=== PATIENT | female | born 1985 | race Caucasian/White ===

== ENCOUNTER → 2016-05-12 | Outpatient (CLI) | payer OTHER ==
[~2016-05-12] MED LIST: LORT5TAB PO
[2016-05-14 17:23] LABS: CALCULATED AGE AT EDD 29 years (()); GA USED IN RISK ESTIMATE Dates estimate (()); MATERNAL RACE BLACK non-Black (()); MATERNAL WEIGHT (LBS) 212 lbs (()); RECOMMENDED FOLLOW UP None. (()); TRISOMY 18 SCRN RISK ESTIMATE < 1/100 (())
== END ==
LOC: PLAB 12:35
PROVIDERS: ATTEND Obstetrics & Gynecology
DX: O26.892 Other specified pregnancy related conditions, second trimester (principal); Z13.79 Encounter for other screening for genetic and chromosomal anomalies; Z3A.15 15 weeks gestation of pregnancy
CPT/HCPCS: 81511

== ENCOUNTER → 2016-07-15 | Outpatient (CLI) | payer OTHER ==
[2016-07-15 13:07] LABS: BACTERIA, URINE OCC /hpf; BLOOD, URINE SMALL (NEG); GLUCOSE,URINE NEG (NEG); KETONE, URINE NEG (NEG); MUCUS URINE FEW /lpf (OCC); NITRITE,URINE NEG (NEG); PH, URINE 7.5 (5.0-8.5); SQUAMOUS EPITHELIAL CELL URINE <1 /hpf (0-5); URINE COLOR YELLOW (YELLW/STRAW)
[2016-07-15 13:12] LABS: AMPHETAMINE, URINE NEG (NEG); BARBITURATES, URINE NEG (NEG); COCAINE, URINE NEG (NEG)
[2016-07-15 13:35] LABS: HEMATOCRIT 35.8 % (35.0-46.0); REVIEW FLAG FINAL
== END ==
LOC: CLAB 12:00
PROVIDERS: ATTEND Obstetrics & Gynecology
DX: Z34.82 Encounter for supervision of other normal pregnancy, second trimester (principal); Z3A.27 27 weeks gestation of pregnancy
CPT/HCPCS: 36415; 80307; 81001; 82951; 85014; 85018; 86703; 87086; 87340

== ENCOUNTER → 2016-08-06 | Outpatient (CLI) | payer OTHER ==
[2016-08-06 13:37] LABS: BACTERIA, URINE MOD /hpf; BLOOD, URINE TRACE (NEG); GLUCOSE,URINE NEG (NEG); KETONE, URINE NEG (NEG); MUCUS URINE FEW /lpf (OCC); NITRITE,URINE NEG (NEG); PH, URINE 6.5 (5.0-8.5); SQUAMOUS EPITHELIAL CELL URINE <1 /hpf (0-5); URINE COLOR LIGHT-YELLOW (YELLW/STRAW)
== END ==
LOC: PLAB 11:30
PROVIDERS: ATTEND Obstetrics & Gynecology
DX: O23.43 Unspecified infection of urinary tract in pregnancy, third trimester (principal); Z3A.29 29 weeks gestation of pregnancy
CPT/HCPCS: 81001; 87086

== ENCOUNTER → 2016-08-19 | Outpatient (CLI) | payer OTHER ==
[2016-08-19 15:33] LABS: BACTERIA, URINE OCC /hpf; BLOOD, URINE TRACE (NEG); GLUCOSE,URINE NEG (NEG); KETONE, URINE NEG (NEG); NITRITE,URINE NEG (NEG); SQUAMOUS EPITHELIAL CELL URINE 5 /hpf (0-5); URINE COLOR YELLOW (YELLW/STRAW)
== END ==
LOC: PLAB 12:40
PROVIDERS: ATTEND Obstetrics & Gynecology
DX: Z34.93 Encounter for supervision of normal pregnancy, unspecified, third trimester (principal); R82.90 Unspecified abnormal findings in urine; Z3A.31 31 weeks gestation of pregnancy
CPT/HCPCS: 81001; 87086

== ENCOUNTER 2016-10-12 06:24 | Inpatient (IN) | payer OTHER ==
[2016-10-12] VITALS (185 sets, daily range): BP systolic 68–133; BP diastolic 22–83; PULSE 70–143; RESP 6–20; TEMP 98.1–99.7
[2016-10-12] MEDS ORDERED: LACTATED RINGER'S 1000 ML INJ 1,000 ML IV PRN (07:36)
--- NOTE | 2016-10-12 07:37 | PD ---
HPI Chief Complaint Contractions and leaking of fluid since Date Seen: Oct 12, 2016 Time Seen: 07:31 Travel History International Travel<30 Days: No Contact w/Intl Traveler<30Days: No Known Affected Area: No History of Present Illness HPI 31-year-old who is at 40 weeks and 1 day comes in today complaining of contractions with leaking of fluid since . Patient states baby has been moving well and denies vaginal bleeding. Denies any antepartum complications. Para: 0 : 1 History Past Medical History Medical History: Denies Significant Hx Past Surgical History Surgical History: No Previous Surgery Family History Family History: Negative Social History Alcohol Use: No Tobacco Use: No Substance Abuse: No Allergies-Medications (Allergen,Severity, Reaction): Coded Allergies: No Known Allergies (Unverified , 01/25/12) Home Meds Active Scripts Hydrocodone-Acetaminophen (Lortab 5/500)5 Mg/500 Mg Tab1 Tab PO Q6HPRN #20 Prov:Wilfredo CHURCHILL M.D. 04/05/11 Review of Systems Except as stated in HPI: all other systems reviewed are Neg Physical Exam Narrative GENERAL: Well-nourished, well-developed patient. SKIN: Warm and dry. HEAD: Normocephalic and atraumatic. EYES: No scleral icterus. No injection or drainage. ENT: No nasal drainage noted. Mucous membranes pink. Airway patent. NECK: Supple, trachea midline. No JVD. CARDIOVASCULAR: Regular rate and rhythm without murmurs, gallops, or rubs. RESPIRATORY: Breath sounds equal bilaterally. No accessory muscle use. ABDOMEN/GI: Abdomen soft, non-tender, bowel sounds present, no rebound, no guarding Gravid to [-] weeks size Fundal Height: [-40] GENITOURINARY: External Genitalia: intact and normal in appearance BUS glands: [Normal] Cervix: [-Posterior] Dilatation: [-1] Effacement: [75] Station: [-3-] Presentation: [Vertex-] Membranes: [ruptured] amnisure is positive Uterine Contractions: [-Irregular every 10-15 minutes] FHT's: Category: [-1] Baseline: [-150] Reactive: [Moderate-] Variability: [Moderate-] Decels: [-Absent] EXTREMITIES: No cyanosis or edema. BACK: Nontender without obvious deformity. No CVA tenderness. NEUROLOGICAL: Awake and alert. Motor and sensory grossly within normal limits. Five out of 5 muscle strength in all muscle groups. Normal speech. Data Data Vital Signs Reviewed: Yes Orders Ob (2e) Additional Admit Info (10/12/16 07:23) [facility] Medical Record Reviewed: Yes Plan 31-year-old who is at 40 weeks and 1 day with a positive amnisure indicating rupture membranes Group B strep negative Patient is not in labor at this time and understands that she may need Pitocin augmentation Diagnosis Diagnosis: Primary Impression: 40 weeks gestation of Additional Impressions: Rupture of membranes with clear amniotic fluid Premature rupture of membranes Noni Pearce MD Oct 12, 2016 07:37
[2016-10-12] MEDS ORDERED: SODIUM CHLORID 0.9% 500 ML INJ 500 ML IV PRN (07:45)
[2016-10-12] MEDS ORDERED: LIDOCAINE HCL 1% 50 ML VIAL INFIL PRN (07:45)
[2016-10-12] MEDS ORDERED: OXYTOCIN 30 UNITS-500ML PREMIX 500 ML IV ONE (07:45)
[2016-10-12] MEDS ORDERED: OXYTOCIN 30 UNITS-500ML PREMIX 500 ML IV SCH (07:45)
[2016-10-12] MEDS ORDERED: MINERAL OIL 10 ML VIAL TOPICAL PRN (07:45)
[2016-10-12] MEDS ORDERED: CITRIC ACID-SODIUM CITRATE LIQ 30 ML UDC PO SCH (07:45)
[2016-10-12] MEDS ORDERED: LIDOCAINE HCL 1% 50 ML VIAL I-DERMAL PRN (07:45)
[2016-10-12] MEDS ORDERED: ONDANSETRON HCL 4 MG/2 ML VIAL IV PRN (07:45)
[2016-10-12 07:49] LABS: AUTOMATED NEUTROPHIL # 15.2 TH/MM3 (1.8-7.7); BASOPHIL % 0.2 % (0.0-2.0); EOSINOPHIL % 0.1 % (0.0-4.0); HEMATOCRIT 40.1 % (35.0-46.0); HEMO FLAGS DIFF FINAL; LYMPH % 13.1 % (9.0-44.0); LYMPHOCYTE # 2.4 TH/MM3 (1.0-4.8); MEAN CELL VOLUME 86.5 FL (80.0-100.0); MEAN CORPUSCULAR HEMOGLOBIN 29.3 PG (27.0-34.0); MEAN CORPUSCULAR HGB CONC 33.8 % (32.0-36.0); MONO % 3.5 % (0.0-8.0); NEUT % 83.1 % (16.0-70.0); PLATELET COUNT 253 TH/MM3 (150-450); RED BLOOD COUNT 4.64 MIL/MM3 (4.00-5.30); RED CELL DISTRIBUTION WIDTH 16.1 % (11.6-17.2); WHITE BLOOD COUNT 18.3 TH/MM3 (4.0-11.0)
[2016-10-12] MEDS ORDERED: SODIUM CHLOR 0.9% 1000 ML INJ 1,000 ML IV PRN (07:56)
[2016-10-12 08:01] LABS: BLOOD, URINE MOD (NEG); COMMENT (UR) CULT NOT INDICATED; CULTURE IF INDICATED CULT NOT INDICATED; GLUCOSE,URINE NEG (NEG); KETONE, URINE NEG (NEG); MUCUS URINE FEW /lpf (OCC); NITRITE,URINE NEG (NEG); SQUAMOUS EPITHELIAL CELL URINE <1 /hpf (0-5); URINE COLOR YELLOW (YELLW/STRAW)
[2016-10-12] MEDS: LACTATED RINGER'S 1000 ML INJ 1,000 ML IV SCH ×3 (09:16→20:32)
[2016-10-12] MEDS ORDERED: fentaNYL 2MCG-BUPIV 0.125% INJ 100 ML ONE (12:20)
[2016-10-12] MEDS ORDERED: NO SYSTEM NARCOTICS PRN (16:30)
[2016-10-12] MEDS ORDERED: ePHEDrine/NS 25 MG/5 ML SYR IV PRN (16:30)
[2016-10-12] MEDS ORDERED: DO NOT ADMINISTER ANTICOAGULANTS PRN (17:00)
--- NOTE | 2016-10-12 17:36 | PD.LABORPN ---
Subjective Subjective comfortable since epidural starting to feel pressure pitocin was at 20 and stopped one hour to resume at 2 and increae 9/-1/90% strip category one Need descent will have sit straight up. Objective Vital Signs Vital Signs Date Time Temp Pulse Resp B/P Pulse Ox O2 Delivery O2 Flow Rate FiO2 10/12/16 17:30 99 10/12/16 17:25 100 10/12/16 17:20 92 10/12/16 17:15 91 98/61 10/12/16 17:10 93 10/12/16 17:05 95 10/12/16 17:04 97 95/64 10/12/16 17:03 109 68/47 10/12/16 17:02 143 98/22 10/12/16 17:00 88 10/12/16 16:55 95 10/12/16 16:50 103 10/12/16 16:46 106 123/80 10/12/16 16:45 111 10/12/16 16:40 103 10/12/16 16:35 106 10/12/16 16:31 93 114/77 10/12/16 16:30 99.0 10/12/16 16:30 97 10/12/16 16:30 98.9 10/12/16 16:25 105 10/12/16 16:20 101 10/12/16 16:16 99 110/70 10/12/16 16:15 16 10/12/16 16:15 92 10/12/16 16:10 84 10/12/16 16:05 93 10/12/16 16:02 18 10/12/16 16:01 93 111/64 10/12/16 16:00 91 10/12/16 15:55 99 10/12/16 15:50 89 10/12/16 15:46 84 122/73 10/12/16 15:45 87 10/12/16 15:40 86 10/12/16 15:35 90 10/12/16 15:32 96 115/61 10/12/16 15:30 92 10/12/16 15:30 92 10/12/16 15:25 98 10/12/16 15:25 97 10/12/16 15:20 81 10/12/16 15:16 99 115/83 10/12/16 15:15 99 10/12/16 15:15 98.7 18 10/12/16 15:10 92 10/12/16 15:05 106 10/12/16 15:02 105 103/72 10/12/16 15:00 91 10/12/16 14:55 90 10/12/16 14:55 85 10/12/16 14:50 89 10/12/16 14:50 89 10/12/16 14:46 103 108/73 10/12/16 14:45 104 10/12/16 14:40 98 10/12/16 14:35 94 10/12/16 14:31 92 115/64 10/12/16 14:30 81 10/12/16 14:25 104 10/12/16 14:20 94 10/12/16 14:16 101 116/71 10/12/16 14:15 82 10/12/16 14:10 86 10/12/16 14:05 85 10/12/16 14:01 96 107/67 10/12/16 14:00 85 10/12/16 13:58 16 10/12/16 13:58 6 10/12/16 13:55 79 10/12/16 13:50 79 10/12/16 13:46 76 116/62 10/12/16 13:45 81 10/12/16 13:40 98 10/12/16 13:35 81 10/12/16 13:31 104 108/56 10/12/16 13:30 81 10/12/16 13:25 77 10/12/16 13:20 88 10/12/16 13:16 79 98/61 10/12/16 13:15 86 10/12/16 13:15 87 10/12/16 13:10 95 10/12/16 13:10 95 10/12/16 13:09 98.3 18 10/12/16 13:06 85 109/58 10/12/16 13:05 78 10/12/16 13:02 100 105/68 10/12/16 13:01 95 88/58 10/12/16 13:00 85 10/12/16 12:56 87 114/65 10/12/16 12:55 89 10/12/16 12:51 85 115/60 10/12/16 12:50 90 10/12/16 12:46 85 107/66 10/12/16 12:45 95 10/12/16 12:45 18 10/12/16 12:43 90 110/62 10/12/16 12:41 91 115/61 10/12/16 12:40 92 10/12/16 12:39 90 118/64 10/12/16 12:37 92 119/63 10/12/16 12:35 89 113/67 10/12/16 12:35 88 10/12/16 12:33 99 121/76 10/12/16 12:31 76 132/83 10/12/16 12:30 83 10/12/16 12:25 80 10/12/16 12:20 74 10/12/16 12:15 73 10/12/16 12:10 78 10/12/16 12:05 79 10/12/16 12:00 72 10/12/16 11:55 78 10/12/16 11:50 81 10/12/16 11:45 76 10/12/16 11:40 84 10/12/16 11:40 98.1 10/12/16 11:35 116 10/12/16 11:30 73 10/12/16 11:25 78 10/12/16 11:20 111 10/12/16 11:15 20 133/71 10/12/16 11:15 97 10/12/16 11:10 108 10/12/16 11:05 76 10/12/16 11:00 20 10/12/16 10:30 98.7 10/12/16 10:20 83 10/12/16 10:15 73 10/12/16 10:10 118 10/12/16 10:05 115 10/12/16 10:00 78 10/12/16 09:55 112 10/12/16 09:50 84 10/12/16 09:45 113 10/12/16 09:40 88 Objective Pelvic Exam: Cervix: [-] Dilatation: [-] Effacement: [-] Station: [-] Presentation: [-] Membranes: [intact or ruptured] Uterine Contractions: [-] FHT's: Category: [-] Baseline: [-] Reactive: [-] Variability: [-] Decels: [-] Elvi Segal MD Oct 12, 2016 17:36
[2016-10-12] MEDS ORDERED: ceFAZolin 2 GM PREMIX 50 ML IV STA (19:12)
[2016-10-12] MEDS: fentaNYL 2MCG-BUPIV 0.125% 100 ML EPIDURAL SCH ×2 (19:14→20:10)
[2016-10-12] MEDS ORDERED: ACETAMINOPHEN 1000 MG/100 ML VIAL IV PRN (20:00)
[2016-10-13] VITALS (16 sets, daily range): BP systolic 109–142; BP diastolic 47–87; PULSE 66–100; RESP 16–18; TEMP 97.9–98.9; O2SAT 96–99
[2016-10-13] MEDS: LACTATED RINGER'S 1000 ML INJ 1,000 ML IV SCH (00:35)
[2016-10-13] MEDS ORDERED: LACTATED RINGER'S 1000 ML IV ONE (03:00)
[2016-10-13] MEDS ORDERED: ceFAZolin 2 GM PREMIX 50 ML IV SCH (03:00)
[2016-10-13] MEDS ORDERED: LACTATED RINGER'S 1000 ML IV SCH (03:00)
[2016-10-13] MEDS ORDERED: CITRIC ACID-SODIUM CITRATE LIQ 30 ML UDC PO SCH (03:00)
[2016-10-13] MEDS ORDERED: OXYTOCIN 10 UNIT/ML AMP ONE (03:04)
[2016-10-13] MEDS ORDERED: ceFAZolin INJ 1,000 MG VIAL ONE (03:04)
[2016-10-13] MEDS ORDERED: MORPHINE SULFATE PF 5 MG/10 ML VIAL ONE (03:21)
[2016-10-13] MEDS ORDERED: DICLOFENAC SODIUM 37.5 MG/ML VIAL IV PUSH ONE (03:21)
[2016-10-13] MEDS ORDERED: ONDANSETRON HCL 4 MG/2 ML VIAL ONE (03:21)
[2016-10-13] MEDS ORDERED: EPIDURAL-DO NOT ADMINISTER ANTICOAGULANTS PRN (03:30)
[2016-10-13] MEDS ORDERED: EPIDURAL-NALOXONE HCL 0.4 MG/ML AMP IV PRN (03:30)
[2016-10-13] MEDS ORDERED: EPIDURAL-DIPHENHYDRAMINE HCL 50 MG CAP PO PRN (03:30)
[2016-10-13] MEDS ORDERED: EPIDURAL-DIPHENHYDRAMINE HCL 50 MG/ML VIAL IV PUSH PRN (03:30)
[2016-10-13] MEDS ORDERED: EPIDURAL-NO SYSTEMIC NARCOTICS PRN (03:30)
--- NOTE | 2016-10-13 03:50 | PD.OB.DELI ---
Procedure Note Section Procedure Pre Op Diagnosis term SROM with labor and failure of descent Post Op Diagnosis: Post Op Diagnosis same , delivered Performed by Elvi Segal Procedure: Primary Low Transverse Sec Indication for delivery: malposition Informed consent obtained: For anesthesia, For procedure Confirmed correct: Patient, Procedure, Site, Time-out taken Anesthesia: Epidural Medication prior to procedure: As documented in eMAR Monitoring during procedure: Blood pressure monitoring, court monitor Urinary catheter: Inserted using sterile technique, To dependent drainage Sterile preparation: Duraprep, In usual fashion, With 2% chlorexidine ( Hibiclens) Position: Supine with wedge to right side Operative Features Skin Incision: Pfannenstiel Uterine Incision: Low transverse w/knife / blunt ext Membranes Ruptured: Previously Presentation: Occiput posterior Delivery of : Assisted, Uneventful Infant: Male One Minute : 8 Five Minute : 9 Weight: 7 10 Status of : Viable, Cord blood Placenta delivered: Intact Medications: Antibiotics, Oxytocin Estimated blood loss: average Procedure tolerated: Fair Maternal Condition: Stable Condition: Stable (dictated) Elvi Segal MD Oct 13, 2016 03:50
[2016-10-13] MEDS ORDERED: oxyCODONE/ACETAMINOPHEN 5 MG/325 MG TAB PO PRN ×2 (04:00)
[2016-10-13] MEDS ORDERED: SIMETHICONE 80 MG CHEWABLE TAB PO PRN (04:00)
[2016-10-13] MEDS ORDERED: OXYTOCIN 30 UNITS-500ML PREMIX 500 ML IV ONE (04:00)
[2016-10-13] MEDS ORDERED: SODIUM CHLORIDE 0.9% FLUSH 10 ML FLUSH IV FLUSH PRN (04:00)
[2016-10-13] MEDS ORDERED: ZOLPIDEM TARTRATE 5 MG TAB PO PRN (04:00)
[2016-10-13] MEDS ORDERED: DOCUSATE SODIUM 50 MG/SENNA 8.6 MG TAB PO PRN (04:00)
[2016-10-13] MEDS ORDERED: ONDANSETRON HCL 4 MG/2 ML VIAL IV PUSH PRN (04:00)
[2016-10-13] MEDS ORDERED: ACETAMINOPHEN 1000 MG/100 ML VIAL IV ONE ×2 (04:00→04:34)
[2016-10-13] MEDS ORDERED: LIDOCAINE 2%/EPINEPHrine PF 1:200,000 20ML SDV NERV BLOCK ONE (04:15)
[2016-10-13] MEDS ORDERED: SODIUM BICARBONATE 8.4% SOLN 50 MEQ/50 ML VIAL IV ONE (04:15)
--- NOTE | 2016-10-13 08:40 | MP ---
cc: DEIRDREELVI DATE OF SURGERY 10/13/2016 DATE OF 1985 POSTOPERATIVE DIAGNOSIS Term with spontaneous rupture of membranes, augmentation and failure of descent. POSTOPERATIVE DIAGNOSIS Term with spontaneous rupture of membranes, augmentation and failure of descent. PROCEDURE Primary low transverse segment section ANESTHESIA Epidural with Duramorph SURGEON Elvi Segal MD [employer]RA[employer]PECT[employer] House staff FINDINGS A living male was delivered from left occiput posterior and some degree of a asynclitism with clear fluid and a nuchal cord x1. His 's were 8 at one and 9 at five. He weighed 7 pounds 10 ounces. Placenta was anterior, low-lying and taken out intact with a three-vessel cord. It was saved sterilely in hopes of a Mimetics pack available in the morning. ESTIMATED BLOOD LOSS Average COUNTS Sponge, instrument, needle count were correct. PROCEDURE After a very extended protracted, but uneventful labor, it was apparent that this was in an asynclitic LOP position and would not descend. This was explained to the family. She was then taken to the operating room, her epidural was reinforced, she was placed in dorsal supine position with weight off the vena cava. She had received 2 grams of Ancef prior to surgery. She had sequential stockings on and a Corral catheter was already in place. A time-out was performed with all in attendance after she was prepped and draped in the usual sterile fashion. was brought in and then a Pfannenstiel incision was made with a knife and carried down through to the rectus fascia with a Bovie on cutting. The rectus fascia was incised in an elliptical fashion and taken off the rectus muscle. The rectus muscle was bluntly in the midline and then the parietal peritoneum was entered. A bladder flap was created off the lower uterine segment as the uterus was palpated for position and then a small incision was made in the midline and extended in a vertical fashion. The infant was not really in the pelvis from above, easily removed with a significant caput. His cord was clamped x2, cut and he was handed to the neonatology team in attending. He did have a 45-second delayed cord clamping. The placenta was then extracted manually with a three-vessel cord and kept sterile. The uterus was exteriorized, cleaned with a lap sponge and then closed with chromic in a running interlocking fashion with a second horizontal imbricating layer. Then it was replaced into the abdominal cavity with copious irrigation and careful evaluation of the angles for bleeding. After irrigation, the midline muscle was approximated to prevent diastasis with a running loose Vicryl stitch and the fascia was closed with one Vicryl in a running, non-interlocking fashion. Subcutaneous layer was closed with 3-0 plain. The skin was closed with 4-0 Vicryl on a Gilmar needle. Estimated blood loss was average. Sponge, instrument, needle counts were correct. She tolerated the procedure well and she went to the recovery room in stable condition. MD VIKI Mauro/ALEXANDRO /3:59 AM /8:34 AM
[2016-10-13] MEDS ORDERED: LACTATED RINGER'S 1000 ML INJ 1,000 ML IV SCH (08:50)
[2016-10-13] MEDS ORDERED: SODIUM CHLORIDE 0.9% FLUSH 10 ML FLUSH IV FLUSH SCH (09:00)
[2016-10-13] MEDS: DICLOFENAC SODIUM 37.5 MG/ML VIAL IV PUSH SCH ×3 (10:28→22:55)
[2016-10-13] MEDS ORDERED: PROMETHAZINE INJ 25 MG/ML VIAL IM PRN (11:15)
--- NOTE | 2016-10-13 11:16 | HHI.OB ---
Subjective Post Operative Day: 0 Remarks S/P LTCS 0300. c/o n/v , zofran not effective Objective Vitals/I&O Vital Signs Date Time Temp Pulse Resp B/P Pulse Ox O2 Delivery O2 Flow Rate FiO2 10/13/16 09:40 98.1 70 16 119/82 10/13/16 06:00 98.6 70 16 116/68 10/13/16 05:21 98.9 10/13/16 05:15 115/64 10/13/16 05:00 18 10/13/16 05:00 82 121/60 10/13/16 04:45 80 18 115/58 10/13/16 04:30 83 18 10/13/16 04:30 116/55 10/13/16 04:15 79 18 109/70 98 10/13/16 03:59 97.9 89 18 126/58 99 10/13/16 02:00 98.9 16 10/13/16 01:01 100 118/47 10/13/16 00:31 70 120/87 10/13/16 00:01 85 114/76 10/12/16 23:31 72 103/54 10/12/16 22:53 99.0 16 10/12/16 22:31 79 107/56 10/12/16 22:01 79 102/61 10/12/16 21:31 80 119/51 10/12/16 21:01 87 127/60 10/12/16 20:31 88 118/67 10/12/16 20:22 16 10/12/16 20:02 99.7 10/12/16 20:01 87 106/54 10/12/16 19:25 97 10/12/16 19:20 105 10/12/16 19:16 94 128/77 10/12/16 19:15 103 10/12/16 19:10 104 10/12/16 19:05 99 10/12/16 19:01 107 106/70 10/12/16 19:00 97 10/12/16 18:55 102 10/12/16 18:50 108 10/12/16 18:46 111 131/75 10/12/16 18:45 110 10/12/16 18:43 99.6 10/12/16 18:40 102 10/12/16 18:35 103 10/12/16 18:31 103 125/79 10/12/16 18:30 103 10/12/16 18:25 100 10/12/16 18:20 105 10/12/16 18:16 101 128/83 10/12/16 18:15 105 10/12/16 18:10 98 10/12/16 18:05 101 10/12/16 18:01 103 126/75 10/12/16 18:00 98.7 18 10/12/16 18:00 103 10/12/16 17:55 99 10/12/16 17:50 103 10/12/16 17:46 99 122/74 10/12/16 17:45 109 10/12/16 17:40 105 10/12/16 17:35 96 10/12/16 17:30 99 10/12/16 17:30 115/66 10/12/16 17:25 100 10/12/16 17:20 92 10/12/16 17:15 91 98/61 10/12/16 17:10 93 10/12/16 17:05 95 10/12/16 17:04 97 95/64 10/12/16 17:03 109 68/47 10/12/16 17:02 143 98/22 10/12/16 17:00 88 10/12/16 16:55 95 10/12/16 16:50 103 10/12/16 16:46 106 123/80 10/12/16 16:45 111 10/12/16 16:40 103 10/12/16 16:35 106 10/12/16 16:31 93 114/77 10/12/16 16:30 99.0 10/12/16 16:30 97 10/12/16 16:30 98.9 10/12/16 16:25 105 10/12/16 16:20 101 10/12/16 16:16 99 110/70 10/12/16 16:15 16 10/12/16 16:15 92 10/12/16 16:10 84 10/12/16 16:05 93 10/12/16 16:02 18 10/12/16 16:01 93 111/64 10/12/16 16:00 91 10/12/16 15:55 99 10/12/16 15:50 89 10/12/16 15:46 84 122/73 10/12/16 15:45 87 10/12/16 15:40 86 10/12/16 15:35 90 10/12/16 15:32 96 115/61 10/12/16 15:30 92 10/12/16 15:30 92 10/12/16 15:25 98 10/12/16 15:25 97 10/12/16 15:20 81 10/12/16 15:16 99 115/83 10/12/16 15:15 99 10/12/16 15:15 98.7 18 10/12/16 15:10 92 10/12/16 15:05 106 10/12/16 15:02 105 103/72 10/12/16 15:00 91 10/12/16 14:55 90 10/12/16 14:55 85 10/12/16 14:50 89 10/12/16 14:50 89 10/12/16 14:46 103 108/73 10/12/16 14:45 104 10/12/16 14:40 98 10/12/16 14:35 94 10/12/16 14:31 92 115/64 10/12/16 14:30 81 10/12/16 14:25 104 10/12/16 14:20 94 10/12/16 14:16 101 116/71 10/12/16 14:15 82 10/12/16 14:10 86 10/12/16 14:05 85 10/12/16 14:01 96 107/67 10/12/16 14:00 85 10/12/16 13:58 16 10/12/16 13:58 6 10/12/16 13:55 79 10/12/16 13:50 79 10/12/16 13:46 76 116/62 10/12/16 13:45 81 10/12/16 13:40 98 10/12/16 13:35 81 10/12/16 13:31 104 108/56 10/12/16 13:30 81 10/12/16 13:25 77 10/12/16 13:20 88 10/12/16 13:16 79 98/61 10/12/16 13:15 86 10/12/16 13:15 87 10/12/16 13:10 95 10/12/16 13:10 95 10/12/16 13:09 98.3 18 10/12/16 13:06 85 109/58 10/12/16 13:05 78 10/12/16 13:02 100 105/68 10/12/16 13:01 95 88/58 10/12/16 13:00 85 10/12/16 12:56 87 114/65 10/12/16 12:55 89 10/12/16 12:51 85 115/60 10/12/16 12:50 90 10/12/16 12:46 85 107/66 10/12/16 12:45 95 10/12/16 12:45 18 10/12/16 12:43 90 110/62 10/12/16 12:41 91 115/61 10/12/16 12:40 92 10/12/16 12:39 90 118/64 10/12/16 12:37 92 119/63 10/12/16 12:35 89 113/67 10/12/16 12:35 88 10/12/16 12:33 99 121/76 10/12/16 12:31 76 132/83 10/12/16 12:30 83 10/12/16 12:25 80 10/12/16 12:20 74 10/12/16 12:15 73 10/12/16 12:10 78 10/12/16 12:05 79 10/12/16 12:00 72 10/12/16 11:55 78 10/12/16 11:50 81 10/12/16 11:45 76 10/12/16 11:40 84 10/12/16 11:40 98.1 10/12/16 11:35 116 10/12/16 11:30 73 10/12/16 11:25 78 10/12/16 11:20 111 10/12/16 11:15 20 133/71 10/12/16 11:15 97 Result Diagram: 10/12/16 0730 Objective Remarks GENERAL: Well-nourished, well-developed patient. CARDIOVASCULAR: Regular rate and rhythm without murmurs, gallops, or rubs. RESPIRATORY: Breath sounds equal bilaterally. No accessory muscle use. ABDOMEN/GI: Abdomen soft, non-tender, bowel sounds present. Incision: Clean, dry and intact. Fundus: Firm, non-tender at umbilicus. GENITOURINARY: Light to moderate bleeding. EXTREMITIES: No cyanosis or edema, non-tender, without signs of DVT. Medications and IVs Current Medications Medications (Trade) Dose Ordered Sig/Ying Route Start Time Stop Time Status Last Admin Lactated Ringer's 1,000 ml @ 125 mls/hr Q8H IV 10/12/16 07:36 10/13/16 00:35 Lactated Ringer's 1,000 ml @ 3,000 mls/hr Q20M PRN IV 10/12/16 07:36 (NS 1000 ml Inj) 1,000 ml @ 100 mls/hr Q10H PRN IV 10/12/16 07:56 (Zofran Inj) 4 mg Q6H PRN IV 10/12/16 07:45 10/13/16 09:14 (fentaNYL INJ) 50 mcg Q1H PRN IV PUSH 10/12/16 07:45 (fentaNYL INJ) 100 mcg Q1H PRN IV PUSH 10/12/16 07:45 Mineral Oil 10 ml 10 ml UNSCH PRN TOPICAL 10/12/16 07:45 (Pitocin 30 Units-NS 500 ml Premix) 500 ml @ 0 mls/hr TITRATE IV 10/12/16 07:45 10/12/16 11:11 Miscellaneous Information No systemic narcotics to be given except... UNSCH PRN .XX 10/12/16 16:30 10/13/16 16:29 Miscellaneous Information DO NOT ADMINISTER ANY ANTICOAGUL... UNSCH PRN .XX 10/12/16 17:00 10/13/16 16:59 (fentaNYL 2MCG-BUPIV 0.125% INJ) 100 ml @ 0 mls/hr TITRATE EPIDURAL 10/12/16 16:30 10/12/16 20:10 Ephedrine Sulfate 10 mg 10 mg UNSCH PRN IV 10/12/16 16:30 10/13/16 16:29 Lactated Ringer's 1,000 ml @ 150 mls/hr Q6H40M IV 10/13/16 03:00 (Lr 1000 ml Inj) 1,000 ml @ 100 mls/hr Q10H IV 10/13/16 08:50 10/14/16 04:49 (NS Flush) 2 ml BID IV FLUSH 10/13/16 09:00 (NS Flush) 2 ml UNSCH PRN IV FLUSH 10/13/16 04:00 (Mylicon Chew) 80 mg QID PRN PO 10/13/16 04:00 (Motrin) 600 mg Q6H PRN PO 10/13/16 04:00 (Percocet 5-325 Mg) 1 tab Q4H PRN PO 10/13/16 04:00 (Percocet 5-325 Mg) 2 tab Q4H PRN PO 10/13/16 04:00 (Katya-Colace) 2 tab Q12H PRN PO 10/13/16 04:00 (Ambien) 5 mg HS PRN PO 10/13/16 04:00 (M-M-R Ii Inj) 0.5 ml ONCE ONCE SQ 10/14/16 16:00 10/14/16 16:01 (Boostrix Inj) 0.5 ml ONCE ONCE IM 10/14/16 16:00 10/14/16 16:01 (Zofran Inj) 4 mg Q6H PRN IV PUSH 10/13/16 04:00 Miscellaneous Information NO SYSTEMIC NARCOTICS TO BE GIVEN FO... UNSCH PRN .XX 10/13/16 03:30 10/14/16 03:29 (Narcan Inj) 0.4 mg UNSCH PRN IV 10/13/16 03:30 10/14/16 03:29 (Benadryl Inj) 25 mg Q6H PRN IV PUSH 10/13/16 03:30 10/14/16 03:29 (Benadryl) 50 mg Q6H PRN PO 10/13/16 03:30 10/14/16 03:29 Miscellaneous Information ALL NURSING DEPARTMENTS UNSCH PRN .XX 10/13/16 03:30 10/14/16 03:29 (Dyloject Inj) 37.5 mg Q6H IV PUSH 10/13/16 10:00 10/13/16 22:01 10/13/16 10:28 Assessment/Plan Assessment and Plan POD#0, N/V ,add phenergan IM, stable Discharge Planning Does not meet criteria Jonnie Partida MD Oct 13, 2016 11:16
[2016-10-13] MEDS ORDERED: OXYTOCIN 30 UNITS-500ML PREMIX 500 ML IV PRN (14:00)
[2016-10-14 05:54] LABS: AUTOMATED NEUTROPHIL # 15.3 TH/MM3 (1.8-7.7); BASOPHIL % 0.2 % (0.0-2.0); EOSINOPHIL # 0.2 TH/MM3 (0-0.4); EOSINOPHIL % 0.8 % (0.0-4.0); HEMO FLAGS DIFF FINAL; LYMPH % 17.5 % (9.0-44.0); LYMPHOCYTE # 3.5 TH/MM3 (1.0-4.8); MEAN CELL VOLUME 88.4 FL (80.0-100.0); MEAN CORPUSCULAR HEMOGLOBIN 28.2 PG (27.0-34.0); MEAN CORPUSCULAR HGB CONC 31.9 % (32.0-36.0); MONO % 5.9 % (0.0-8.0); NEUT % 75.6 % (16.0-70.0); PLATELET COUNT 202 TH/MM3 (150-450); RED BLOOD COUNT 3.73 MIL/MM3 (4.00-5.30); WHITE BLOOD COUNT 20.2 TH/MM3 (4.0-11.0)
[2016-10-14] MEDS: LACTATED RINGER'S 1000 ML INJ 1,000 ML IV SCH ×2 (07:36→16:19)
--- NOTE | 2016-10-14 08:20 | HHI.OB ---
Subjective Post Operative Day: 2 Remarks doing well excellent results with pumping pain controlled concerned with constipation Objective Vitals/I&O Vital Signs Date Time Temp Pulse Resp B/P Pulse Ox O2 Delivery O2 Flow Rate FiO2 10/13/16 19:50 97.9 90 18 142/83 96 10/13/16 15:55 98.5 16 10/13/16 15:55 66 129/71 10/13/16 13:31 98.4 74 16 121/80 10/13/16 09:40 98.1 70 16 119/82 Result Diagram: 10/14/16 0446 Objective Remarks GENERAL: Well-nourished, well-developed patient. CARDIOVASCULAR: Regular rate and rhythm without murmurs, gallops, or rubs. RESPIRATORY: Breath sounds equal bilaterally. No accessory muscle use. ABDOMEN/GI: Abdomen soft, non-tender, bowel sounds present. Incision: Clean, dry and intact. Fundus: Firm, non-tender at umbilicus. GENITOURINARY: Light to moderate bleeding. EXTREMITIES: No cyanosis or edema, non-tender, without signs of DVT. Medications and IVs Current Medications Medications (Trade) Dose Ordered Sig/Ying Route Start Time Stop Time Status Last Admin Lactated Ringer's 1,000 ml @ 125 mls/hr Q8H IV 10/12/16 07:36 10/13/16 00:35 Lactated Ringer's 1,000 ml @ 3,000 mls/hr Q20M PRN IV 10/12/16 07:36 (NS 1000 ml Inj) 1,000 ml @ 100 mls/hr Q10H PRN IV 10/12/16 07:56 (fentaNYL INJ) 50 mcg Q1H PRN IV PUSH 10/12/16 07:45 (fentaNYL INJ) 100 mcg Q1H PRN IV PUSH 10/12/16 07:45 Mineral Oil 10 ml 10 ml UNSCH PRN TOPICAL 10/12/16 07:45 Oxytocin 500 ml @ 0 mls/hr TITRATE IV 10/12/16 07:45 10/12/16 11:11 Fentanyl/ Bupivacaine HCl 100 ml @ 0 mls/hr TITRATE EPIDURAL 10/12/16 16:30 10/12/16 20:10 (Lr 1000 ml Inj) 1,000 ml @ 150 mls/hr Q6H40M IV 10/13/16 03:00 (NS Flush) 2 ml BID IV FLUSH 10/13/16 09:00 (NS Flush) 2 ml UNSCH PRN IV FLUSH 10/13/16 04:00 (Mylicon Chew) 80 mg QID PRN PO 10/13/16 04:00 (Motrin) 600 mg Q6H PRN PO 10/13/16 04:00 (Percocet 5-325 Mg) 1 tab Q4H PRN PO 10/13/16 04:00 (Percocet 5-325 Mg) 2 tab Q4H PRN PO 10/13/16 04:00 (Katya-Colace) 2 tab Q12H PRN PO 10/13/16 04:00 (Ambien) 5 mg HS PRN PO 10/13/16 04:00 (M-M-R Ii Inj) 0.5 ml ONCE ONCE SQ 10/14/16 16:00 10/14/16 16:01 (Boostrix Inj) 0.5 ml ONCE ONCE IM 10/14/16 16:00 10/14/16 16:01 (Zofran Inj) 4 mg Q6H PRN IV PUSH 10/13/16 04:00 10/13/16 15:21 (Phenergan Inj) 25 mg Q6H PRN IM 10/13/16 11:15 Assessment/Plan Assessment and Plan POD 1 1/2 Doing great elevated WBC insignificant in absence of symptoms anticipate discharge Tuesday baby for circ Discharge Planning Does not meet criteria Elvi Segal MD Oct 14, 2016 08:20
[2016-10-14] MEDS ORDERED: OXYC1TAB63 PO (08:22)
--- NOTE | 2016-10-14 08:23 | HHI.DCPOC ---
Discharge Care Plan Report Symptoms to Your Doctor -Temperature above 100.5 degrees -Redness, of incision or excessive or foul smelling drainage -Unusual pain or calf pain -Increased vaginal bleeding -Painful or difficulty urinating -Feelings of extreme sadness or anxiety after 2 weeks Goals to Promote Your Health * To prevent worsening of your condition and complications * To maintain your health at the optimal level Directions to Meet Your Goals Take your medications as prescribed Follow your dietary instruction Follow activity as directed Ensure plenty of rest for recovery Drink fluids for hydration Keep your appointments as scheduled Take your immunizations and boosters as scheduled If your symptoms worsen call your PCP, if no PCP go to Urgent Care Center or Emergency Room Smoking is Dangerous to Your Health. Avoid second hand smoke Call the 24-hour crisis hotline for domestic abuse at Elvi Segal MD Oct 14, 2016 08:23
[2016-10-14] MEDS ORDERED: POLYETHYLENE GLYCOL 17 GM PKG PO SCH (09:00)
[2016-10-14] MEDS: IBUPROFEN 600 MG TAB PO PRN ×3 (09:06→21:08)
[2016-10-14 09:10] VITALS: BP 121/79; PULSE 83; RESP 20; TEMP 97.6
[2016-10-14 14:50] VITALS: BP 143/85; PULSE 91; RESP 18; TEMP 98.2
[2016-10-14] MEDS ORDERED: DIPHTH/TETANUS/ACEL PERTUSSIS (BOOSTER) 0.5 ML VIAL/PFS IM ONE (16:00)
[2016-10-14] MEDS ORDERED: MEASLES, MUMPS, RUBELLA VACCINE 0.5 ML VIAL SQ ONE (16:00)
[2016-10-14] MEDS ORDERED: TRIAMTERENE/HCTZ 37.5 MG/25 MG CAP PO ONE (19:45)
[2016-10-14 19:50] VITALS: BP 139/75; PULSE 96; RESP 18; TEMP 98.1
[2016-10-15] MEDS: IBUPROFEN 600 MG TAB PO PRN (05:49)
[2016-10-15 08:00] VITALS: BP 132/83; PULSE 77; RESP 16; TEMP 98.1
== END 2016-10-15 11:58 | disposition home or self-care (01) | DRG 766 ==
LOC: HOBED 06:24 → H2EA 07:23 → H1EA 10-13 05:40
PROVIDERS: ADMIT Obstetrics & Gynecology; ATTEND Obstetrics & Gynecology
PROC: 10D00Z1 Extraction of Products of Conception, Low, Open Approach (ICD-10-PCS; principal; 2016-10-13)
DX: O32.4XX0 Maternal care for high head at term, not applicable or unspecified (principal); O48.0 Post-term pregnancy; Z37.0 Single live birth; Z3A.40 40 weeks gestation of pregnancy; O69.81X0 Labor and delivery complicated by cord around neck, without compression, not applicable or unspecified
CPT/HCPCS: 81001; 84112; 85025; 86850; 86900; 86901; J0131; J0690; J1130; J2274; J2405; J2590; J7120